=== PATIENT | female | born 2000 | race Caucasian/White ===

== ENCOUNTER 2024-07-21 10:48 | Outpatient (CLI) | payer OTHER, SELFPAY ==
[2024-07-21 13:43] LABS: Strep A DNA Probe* NOT DETECTED (Not Detectd)
== END 2024-07-21 10:49 | disposition home or self-care (01) ==
LOC: KYNREF 10:50
PROVIDERS: PCP Nurse Practitioner Family; Visit Provider Nurse Practitioner Family
DX: J02.9 Acute pharyngitis, unspecified (principal)
CPT/HCPCS: 87651

== ENCOUNTER 2024-09-08 17:14 | Outpatient (CLI) | payer OTHER, SELFPAY ==
[2024-09-08 22:57] LABS: Clue Cells No Clue Cells Seen (None Seen); Trichomonas No Trichomonas Seen (None Seen); Yeast No Yeast Seen (None Seen)
[2024-09-08 23:25] LABS: GC DNA Amplified* NOT DETECTED (No Detected)
[2024-09-08 23:33] LABS: Chlamydia DNA Amplified* DETECTED (No Detected)
== END 2024-09-08 17:15 | disposition home or self-care (01) ==
PROVIDERS: PCP Nurse Practitioner Family; Visit Provider Nurse Practitioner Family
DX: N89.8 Other specified noninflammatory disorders of vagina (principal)
CPT/HCPCS: 87210; 87491; 87591